=== PATIENT | male | born 1975 | race African-American/Black ===

== ENCOUNTER 2018-10-31 01:00 | Emergency (ER) | payer SELFPAY ==
[~2018-10-31] VITALS: Ht 172.7 cm; Wt 93.0 kg
--- NOTE | 2018-10-31 02:00 | NUR ---
BIB SELF FROM HOME. AAOX4. NO SOB, BREATHING EVEN AND UNLABORED. AMBULATORY. C/O "FEELING OF HAERTBEAT SKIPPING ON AND OFF" PT STATES THAT HE HAS BEEN FEELING THIS CHRONICALLY BUT TODAY IS MORE AND WANT TO GET IT CHECKED OUT. TO ER BED 5. PLACED ON MONITOR. AWAITING MD FOR EVAL.
[2018-10-31 02:22] LABS: BASOPHILS % (AUTO) 0.3 % (0.0-2.0); EOSINOPHILS % (AUTO) 1.2 % (0.0-6.0); HEMATOCRIT 43 % (39-51); LYMPHOCYTES # (AUTO) 1.5 /CMM (0.8-4.8); LYMPHOCYTES % (AUTO) 33.6 % (20.0-44.0); MEAN CORPUSCULAR HGB CONC 33 g/dl (31.0-36.0); MEAN CORPUSCULAR VOLUME 89 fL (80-96); MONOCYTES # (AUTO) 0.3 /CMM (0.1-1.30); MONOCYTES % (AUTO) 6.6 % (2.0-12.0); NEUTROPHILS # (AUTO) 2.6 /CMM (1.8-8.9); NEUTROPHILS % (AUTO) 58.3 % (43.0-81.0); PLATELET COUNT (AUTO) 202 /CMM (150-450); RED BLOOD CELL COUNT(AUTO) 4.79 MIL/uL (4.5-6.0); WHITE BLOOD COUNT (AUTO) 4.5 K/uL (4.3-11.0)
[2018-10-31 02:26] LABS: CALCIUM, SERUM 8.4 mg/dL (8.5-10.1); CARBON DIOXIDE 30 mmol/L (21-32); CHLORIDE 106 mmol/L (98-107); GLUCOSE 111 mg/dL (74-106); POTASSIUM 3.5 mmol/L (3.5-5.1); SODIUM SERUM 143 mmol/L (136-145); UREA NITROGEN, BLOOD 23 mg/dL (7-18)
--- NOTE | 2018-10-31 02:30 | NUR ---
BLOOD DRAWN BY OBSERVER HELPER
[2018-10-31 03:14] VITALS: BP 157/92
--- NOTE | 2018-10-31 03:15 | NUR ---
Patient discharged to home in stable condition. Written and verbal after care instructions given. Patient verbalizes understanding of instruction. Pt ambulatory with a steady gait
== END 2018-10-31 03:34 | disposition home or self-care (01) ==
LOC: ER 01:06
DX: R00.2 Palpitations (principal)
CPT/HCPCS: 36415; 71045-TC; 80048-TC; 84484-TC; 85025-TC; 85378-TC; 85730-TC